=== PATIENT | female | born 1945 | race Caucasian/White ===

== ENCOUNTER → 2017-05-30 | Outpatient (CLI) | payer BC ==
[2017-05-30 16:08] LABS: ADD MAN DIFF? NO
[2017-05-30 16:14] LABS: BASOPHIL # 0.1 10^3/ul (0.0-0.1); BASOPHILS % 0.8 % (0.0-2.0); EOSINOPHILS # 0.1 10^3/ul (0.0-0.5); EOSINOPHILS % 0.8 % (0.0-7.0); HEMATOCRIT 35.7 % (37.0-47.0); HEMOGLOBIN 11.5 g/dl (12.0-16.0); LYMPHOCYTES # 2.9 10^3/ul (0.8-2.9); LYMPHOCYTES % 35.7 % (15.0-51.0); MEAN CORPUSCULAR HGB CONC 32.2 g/dl (32.0-37.0); MEAN CORPUSCULAR VOLUME 102.3 fl (82.0-101.0); MONOCYTE # 0.5 10^3/ul (0.3-0.9); MONOCYTES % 6.5 % (0.0-11.0); NEUTROPHIL # 4.5 10^3/ul (1.6-7.5); NEUTROPHILS % 56.1 % (39.0-77.0); PLATELET COUNT 256 10^3/UL (140-415); RED BLOOD COUNT 3.49 10^6/ul (4.20-5.40); RED CELL DISTRIBUTION WIDTH 14.1 % (11.5-14.5)
[2017-05-30 16:31] LABS: ALANINE AMINOTRANSFERASE 32 IU/L (13-69); ALBUMIN 4.5 g/dl (3.3-4.9); ALKALINE PHOSPHATASE 145 IU/L (42-121); ANION GAP 19 (8-16); ASPARTATE AMINO TRANSFERASE 27 IU/L (15-46); BILIRUBIN,INDIRECT 0.1 mg/dl (0-1.1); BILIRUBIN,TOTAL 0.1 mg/dl (0.2-1.3); BLOOD UREA NITROGEN 20 mg/dl (7-20); CALCIUM 9.9 mg/dl (8.4-10.2); CARBON DIOXIDE 25 mmol/L (21-31); CHLORIDE 102 mmol/L (97-110); CREATININE 0.77 mg/dl (0.44-1.00); GLUCOSE 380 mg/dl (70-220); POTASSIUM 5.2 mmol/L (3.5-5.1); SODIUM 141 mmol/L (135-144); TOTAL PROTEIN 8.1 g/dl (6.1-8.1)
[2017-05-30 16:32] LABS: ALBUMIN/GLOBULIN RATIO 1.25; C-REACTIVE PROTEIN 0.6 mg/dl (0.0-0.9)
[2017-05-30 17:21] LABS: ERYTHROCYTE SEDIMENTATION RATE 35 mm/Hr (0-30)
== END | disposition home or self-care (01) ==
LOC: LAB 15:50
DX: M06.9 Rheumatoid arthritis, unspecified (principal)
CPT/HCPCS: 80053; 85025; 85651; 86140

== ENCOUNTER → 2017-11-22 | Outpatient (CLI) | payer BC ==
[2017-11-22 16:17] LABS: ADD MAN DIFF? NO
[2017-11-22 16:19] LABS: BASOPHILS % 0.4 % (0.0-2.0); EOSINOPHILS % 0.3 % (0.0-7.0); HEMOGLOBIN 12.4 g/dl (12.0-16.0); LYMPHOCYTES # 2.8 10^3/ul (0.8-2.9); MEAN CORPUSCULAR HEMOGLOBIN 32.3 pg (29.0-33.0); MEAN CORPUSCULAR HGB CONC 31.8 g/dl (32.0-37.0); MEAN CORPUSCULAR VOLUME 101.6 fl (82.0-101.0); MEAN PLATELET VOLUME 9.9 fl (7.4-10.4); MONOCYTE # 0.6 10^3/ul (0.3-0.9); MONOCYTES % 7.1 % (0.0-11.0); NEUTROPHIL # 4.4 10^3/ul (1.6-7.5); NEUTROPHILS % 55.9 % (39.0-77.0); PLATELET COUNT 256 10^3/UL (140-415); RED BLOOD COUNT 3.84 10^6/ul (4.20-5.40); RED CELL DISTRIBUTION WIDTH 13.9 % (11.5-14.5)
[2017-11-22 16:19] LABS: WHITE BLOOD COUNT 7.9 10^3/ul (4.8-10.8)
[2017-11-22 16:54] LABS: IRON 43 ug/dl (35-150)
[2017-11-22 16:57] LABS: ALANINE AMINOTRANSFERASE 23 IU/L (13-69); ALBUMIN 4.1 g/dl (3.3-4.9); ALKALINE PHOSPHATASE 146 IU/L (42-121); ANION GAP 16 (8-16); ASPARTATE AMINO TRANSFERASE 26 IU/L (15-46); BILIRUBIN,INDIRECT 0.3 mg/dl (0-1.1); BILIRUBIN,TOTAL 0.3 mg/dl (0.2-1.3); BLOOD UREA NITROGEN 26 mg/dl (7-20); CALCIUM 9.9 mg/dl (8.4-10.2); CARBON DIOXIDE 26 mmol/L (21-31); CHLORIDE 101 mmol/L (97-110); CREATININE 0.74 mg/dl (0.44-1.00); GLUCOSE 270 mg/dl (70-220); POTASSIUM 4.1 mmol/L (3.5-5.1); SODIUM 139 mmol/L (135-144); TOTAL PROTEIN 8.2 g/dl (6.1-8.1)
[2017-11-22 17:05] LABS: % IRON SATURATION 13 % SAT (22-52); TOTAL IRON BINDING CAPACITY 329 ug/dl (241-421)
[2017-11-22 17:31] LABS: FERRITIN 95.9 ng/ml (11.1-264.0)
[2017-11-22 18:02] LABS: FOLATE > 20.0 ng/ml (2.8-20.0)
== END | disposition home or self-care (01) ==
LOC: LAB 15:50
DX: D64.9 Anemia, unspecified (principal)
CPT/HCPCS: 80053; 82607; 82728; 82746; 83036; 83540; 85025

== ENCOUNTER → 2018-02-22 | Outpatient (CLI) | payer BC ==
[2018-02-22 12:08] LABS: ADD MAN DIFF? NO
[2018-02-22 12:13] LABS: BASOPHILS % 0.6 % (0.0-2.0); EOSINOPHILS % 0.3 % (0.0-7.0); HEMATOCRIT 38.5 % (37.0-47.0); HEMOGLOBIN 12.1 g/dl (12.0-16.0); LYMPHOCYTES % 32.2 % (15.0-51.0); MEAN CORPUSCULAR HEMOGLOBIN 32.6 pg (29.0-33.0); MEAN CORPUSCULAR HGB CONC 31.4 g/dl (32.0-37.0); MEAN CORPUSCULAR VOLUME 103.8 fl (82.0-101.0); MONOCYTE # 0.7 10^3/ul (0.3-0.9); NEUTROPHIL # 3.5 10^3/ul (1.6-7.5); NEUTROPHILS % 55.4 % (39.0-77.0); PLATELET COUNT 260 10^3/UL (140-415); RED BLOOD COUNT 3.71 10^6/ul (4.20-5.40); RED CELL DISTRIBUTION WIDTH 15.4 % (11.5-14.5)
[2018-02-22 12:13] LABS: WHITE BLOOD COUNT 6.3 10^3/ul (4.8-10.8)
[2018-02-22 12:26] LABS: HEMOGLOBIN A1C 9.3 % (0-5.9)
[2018-02-22 12:32] LABS: ALANINE AMINOTRANSFERASE 23 IU/L (13-69); ALBUMIN 4.5 g/dl (3.3-4.9); ALBUMIN/GLOBULIN RATIO 1.21; ALKALINE PHOSPHATASE 134 IU/L (42-121); ANION GAP 12 (5-13); ASPARTATE AMINO TRANSFERASE 22 IU/L (15-46); BILIRUBIN,INDIRECT 0.2 mg/dl (0-1.1); BILIRUBIN,TOTAL 0.2 mg/dl (0.2-1.3); BLOOD UREA NITROGEN 17 mg/dl (7-20); CALCIUM 9.9 mg/dl (8.4-10.2); CARBON DIOXIDE 30 mmol/L (21-31); CHLORIDE 100 mmol/L (97-110); CHOL/HDL RATIO 2.7 RATIO; CHOLESTEROL 216 mg/dl (100-200); CREATININE 0.53 mg/dl (0.44-1.00); Estimated GFR > 60 mL/min (>60); GLUCOSE 321 mg/dl (70-220); HDL CHOLESTEROL 78 mg/dl (33-92); LDL CHOLESTEROL,CALCULATED 118 mg/dl; POTASSIUM 4.8 mmol/L (3.5-5.1); SODIUM 142 mmol/L (135-144); TOTAL PROTEIN 8.2 g/dl (6.1-8.1); TRIGLYCERIDES 101 mg/dl (0-149)
== END | disposition home or self-care (01) ==
LOC: LAB 11:47
DX: E11.9 Type 2 diabetes mellitus without complications (principal); I10 Essential (primary) hypertension; E78.5 Hyperlipidemia, unspecified
CPT/HCPCS: 80053; 80061; 83036; 84443; 85025

== ENCOUNTER → 2018-03-08 | Outpatient (CLI) | payer BC | END | disposition home or self-care (01) | LOC: EKG 13:31 | DX: I10 Essential (primary) hypertension (principal); E11.8 Type 2 diabetes mellitus with unspecified complications ==

== ENCOUNTER 2018-03-28 07:35 | Inpatient (IN) | payer BC ==
[2018-03-22 11:34] LABS: ADD MAN DIFF? NO
[2018-03-22 11:42] LABS: WHITE BLOOD COUNT 8.2 10^3/ul (4.8-10.8)
[2018-03-22 11:42] LABS: BASOPHIL # 0.1 10^3/ul (0.0-0.1); BASOPHILS % 0.6 % (0.0-2.0); EOSINOPHILS % 0.5 % (0.0-7.0); HEMATOCRIT 36.5 % (37.0-47.0); HEMOGLOBIN 11.7 g/dl (12.0-16.0); LYMPHOCYTES # 2.4 10^3/ul (0.8-2.9); LYMPHOCYTES % 29.4 % (15.0-51.0); MEAN CORPUSCULAR HEMOGLOBIN 33.6 pg (29.0-33.0); MEAN CORPUSCULAR HGB CONC 32.1 g/dl (32.0-37.0); MEAN CORPUSCULAR VOLUME 104.9 fl (82.0-101.0); MEAN PLATELET VOLUME 10.1 fl (7.4-10.4); MONOCYTE # 0.5 10^3/ul (0.3-0.9); MONOCYTES % 6.4 % (0.0-11.0); NEUTROPHIL # 5.1 10^3/ul (1.6-7.5); NEUTROPHILS % 62.9 % (39.0-77.0); PLATELET COUNT 239 10^3/UL (140-415); RED BLOOD COUNT 3.48 10^6/ul (4.20-5.40); RED CELL DISTRIBUTION WIDTH 14.4 % (11.5-14.5)
[2018-03-22 11:53] LABS: ALANINE AMINOTRANSFERASE 16 IU/L (13-69); ALBUMIN 4.5 g/dl (3.3-4.9); ALBUMIN/GLOBULIN RATIO 1.21; ALKALINE PHOSPHATASE 144 IU/L (42-121); ANION GAP 10 (5-13); ASPARTATE AMINO TRANSFERASE 23 IU/L (15-46); BILIRUBIN,INDIRECT 0.1 mg/dl (0-1.1); BILIRUBIN,TOTAL 0.1 mg/dl (0.2-1.3); BLOOD UREA NITROGEN 20 mg/dl (7-20); CALCIUM 9.9 mg/dl (8.4-10.2); CARBON DIOXIDE 28 mmol/L (21-31); CHLORIDE 100 mmol/L (97-110); CREATININE 0.59 mg/dl (0.44-1.00); Estimated GFR > 60 mL/min (>60); GLUCOSE 332 mg/dl (70-220); POTASSIUM 4.4 mmol/L (3.5-5.1); SODIUM 138 mmol/L (135-144); TOTAL PROTEIN 8.2 g/dl (6.1-8.1)
[2018-03-22 11:55] LABS: INR 0.88; PARTIAL THROMBOPLASTIN TIME 25.7 Sec (23.0-35.0); PT RATIO 0.9
[2018-03-22 12:04] LABS: ADD UMIC YES; UR ASCORBIC ACID NEGATIVE (NEGATIVE); UR BILIRUBIN (Dip) NEGATIVE (NEGATIVE); UR BLOOD (Dip) NEGATIVE (NEGATIVE); UR CLARITY CLEAR (CLEAR); UR COLOR STRAW (YELLOW); UR GLUCOSE (Dip) 3+ mg/dL (NEGATIVE); UR KETONES (Dip) NEGATIVE (NEGATIVE); UR LEUKOCYTE ESTERASE (Dip) 1+ Leu/ul (NEGATIVE); UR NITRITE (Dip) NEGATIVE (NEGATIVE); UR RBC 1 /HPF (0-5); UR SPECIFIC GRAVITY (Dip) 1.009 (1.003-1.030); UR TOTAL PROTEIN (Dip) NEGATIVE (NEGATIVE); UR UROBILINOGEN (Dip) NEGATIVE (NEGATIVE); UR WBC 3 /HPF (0-5)
[~2018-03-28 07:35] MED LIST: SEVOFLURANE 15 MIN
[2018-03-28] MEDS ORDERED: TRANEXAMIC ACID 1,000 MG in DEXTROSE 5% 100 ML IVPB (08:30)
[2018-03-28] MEDS ORDERED: CEFAZOLIN 2 GM/50 ML (PMX) 50 ML IVPB (08:30)
[2018-03-28] MEDS: LACTATED RINGER'S 1,000 ML IV* (09:20)
[2018-03-28] MEDS: GABAPENTIN 300 MG CAP PO ×2 (09:20→20:33)
[2018-03-28] MEDS: DEXAMETHASONE 1 MG TAB PO (09:20)
[2018-03-28] MEDS ORDERED: BUPIVACAINE 0.5% (SDV) 30 ML, morphine SULFATE (PF) 8 MG, EPINEPHrine 0.3 MG, KETOROLAC... IRR (10:00)
[2018-03-28] MEDS ORDERED: MIDAZOLAM 1 MG/ML 2 ML INJ (10:40)
[2018-03-28] MEDS ORDERED: FENTAnyl 50 MCG/ML VIAL (10:41)
[2018-03-28] MEDS ORDERED: ROPIVACAINE 0.5 % 30 ML VIAL (10:48)
[2018-03-28] MEDS ORDERED: hydrALAzine 20 MG INJ (10:51)
[2018-03-28] MEDS ORDERED: THROMBIN (BOVINE) 5,000 UNIT VIAL TP (12:22)
[2018-03-28] MEDS: POLYMYXIN/BACITRACIN 1L IRRIG (12:22)
[2018-03-28] MEDS ORDERED: CA CHLORIDE (GM) 10% 10 ML INJ (12:22)
[2018-03-28] MEDS ORDERED: CEFAZOLIN 1 GM INJ (12:54)
[2018-03-28] MEDS ORDERED: LIDOCAINE 2% (SDV) 5 ML INJ (12:55)
[2018-03-28] MEDS ORDERED: ONDANSETRON 4 MG INJ (12:55)
[2018-03-28] MEDS ORDERED: METOCLOPRAMIDE 10 MG INJ (12:55)
[2018-03-28] MEDS ORDERED: ETOMIDATE 20 MG INJ (12:55)
[2018-03-28] MEDS ORDERED: ONDANSETRON 4 MG INJ IV ×2 (13:30)
[2018-03-28] MEDS ORDERED: METOCLOPRAMIDE 10 MG INJ IV (13:30)
[2018-03-28] MEDS ORDERED: MEPERIDINE 25 MG INJ IV (13:30)
[2018-03-28] MEDS ORDERED: NALOXONE (0.4 MG/ML) INJ IV (13:30)
[2018-03-28] MEDS ORDERED: DIPHENHYDRAMINE 50 MG INJ IV ×2 (13:30)
[2018-03-28] MEDS ORDERED: LABETALOL HCL 20MG INJ IV (13:30)
[2018-03-28] MEDS ORDERED: hydrALAzine 20 MG INJ IV (13:30)
[2018-03-28] MEDS ORDERED: ZOLPIDEM 5 MG TAB PO (13:30)
[2018-03-28] MEDS ORDERED: NACL 0.9% 3 ML SYG IV (13:30)
[2018-03-28] MEDS ORDERED: oxyCODONE 5 MG TAB PO ×2 (13:30)
[2018-03-28] MEDS ORDERED: LOPERAMIDE 2 MG CAP PO (13:30)
[2018-03-28] MEDS ORDERED: HYDROmorphONE 1 MG/ML SYG IV (13:30)
[2018-03-28] MEDS ORDERED: DULAGLUTIDE 0.75 MG SQ (13:30)
[2018-03-28] MEDS ORDERED: FENTAnyl 50 MCG/ML VIAL IV (13:30)
[2018-03-28] MEDS ORDERED: MAGNESIUM HYDROXIDE 30ML CUP PO (13:30)
[2018-03-28] MEDS ORDERED: HYDROmorphONE 1 MG/5 ML IV SYRINGE IV (13:51)
[2018-03-28] MEDS: HYDROmorphONE 1 MG/5 ML IV SYRINGE IV ×3 (14:08→14:21)
[2018-03-28] MEDS: TRANEXAMIC ACID 1,000 MG in SOD CHLORIDE 0.9% 100 ML IVPB (14:21)
[2018-03-28] MEDS: KETOROLAC 15 MG INJ IV (14:42)
[2018-03-28] MEDS: ONDANSETRON 4 MG INJ IV ×2 (16:04→23:53)
[2018-03-28] MEDS: CEFAZOLIN 1 GM/50 ML (PMX) 50 ML IVPB ×2 (16:04→22:05)
[2018-03-28] MEDS: ACETAMINOPHEN 500 MG TAB PO ×2 (18:00→23:54)
[2018-03-28] MEDS: DEXAMETHASONE 2 MG TAB PO ×2 (18:09→23:54)
[2018-03-28] MEDS: metFORMIN 500 MG TAB PO (18:09)
[2018-03-28] MEDS ORDERED: GLUCOSE GEL 15 GRAM TUBE PO ×2 (19:00)
[2018-03-28] MEDS ORDERED: GLUCOSE GEL 15 GRAM TUBE BUCCAL (19:00)
[2018-03-28] MEDS ORDERED: DEXTROSE 50% 50 ML SYRINGE IV ×2 (19:00)
[2018-03-28] MEDS ORDERED: GLUCAGON 1 MG INJ IM (19:00)
[2018-03-28] MEDS: SENNA/DOCUSATE NA (8.6MG/50MG) TAB PO (20:33)
[2018-03-28] MEDS: INSULIN ASPART [NOVOLOG] 3 ML PEN SC (21:34)
[2018-03-28] MEDS: oxyCODONE 5 MG TAB PO (21:38)
[2018-03-29] MEDS: ACCU-CHEK XX (01:57)
[2018-03-29] MEDS: KETOROLAC 15 MG INJ IV (03:40)
[2018-03-29 05:24] LABS: ADD MAN DIFF? NO
[2018-03-29] MEDS: ACETAMINOPHEN 500 MG TAB PO (05:28)
[2018-03-29] MEDS: CEFAZOLIN 1 GM/50 ML (PMX) 50 ML IVPB (05:28)
[2018-03-29] MEDS: DEXAMETHASONE 2 MG TAB PO (05:28)
[2018-03-29 05:39] LABS: WHITE BLOOD COUNT 11.4 10^3/ul (4.8-10.8)
[2018-03-29 05:39] LABS: BASOPHILS % 0.2 % (0.0-2.0); HEMATOCRIT 31.4 % (37.0-47.0); LYMPHOCYTES # 1.3 10^3/ul (0.8-2.9); LYMPHOCYTES % 11.3 % (15.0-51.0); MEAN CORPUSCULAR HGB CONC 31.8 g/dl (32.0-37.0); MEAN CORPUSCULAR VOLUME 103.6 fl (82.0-101.0); MEAN PLATELET VOLUME 10.3 fl (7.4-10.4); MONOCYTE # 0.7 10^3/ul (0.3-0.9); MONOCYTES % 5.7 % (0.0-11.0); NEUTROPHIL # 9.4 10^3/ul (1.6-7.5); NEUTROPHILS % 82.4 % (39.0-77.0); PLATELET COUNT 194 10^3/UL (140-415); RED BLOOD COUNT 3.03 10^6/ul (4.20-5.40); RED CELL DISTRIBUTION WIDTH 14.1 % (11.5-14.5)
[2018-03-29 05:56] LABS: ALANINE AMINOTRANSFERASE 26 IU/L (13-69); ALBUMIN 3.3 g/dl (3.3-4.9); ALBUMIN/GLOBULIN RATIO 1.22; ALKALINE PHOSPHATASE 86 IU/L (42-121); ANION GAP 8 (5-13); ASPARTATE AMINO TRANSFERASE 34 IU/L (15-46); BILIRUBIN,INDIRECT 0.1 mg/dl (0-1.1); BILIRUBIN,TOTAL 0.1 mg/dl (0.2-1.3); BLOOD UREA NITROGEN 13 mg/dl (7-20); CALCIUM 9.1 mg/dl (8.4-10.2); CARBON DIOXIDE 27 mmol/L (21-31); CHLORIDE 102 mmol/L (97-110); CREATININE 0.51 mg/dl (0.44-1.00); Estimated GFR > 60 mL/min (>60); GLUCOSE 205 mg/dl (70-220); POTASSIUM 5.1 mmol/L (3.5-5.1); SODIUM 137 mmol/L (135-144)
[2018-03-29] MEDS: FOLIC ACID 1 MG TAB PO (08:39)
[2018-03-29] MEDS: AMLODIPINE 5 MG TAB PO (08:39)
[2018-03-29] MEDS: SENNA/DOCUSATE NA (8.6MG/50MG) TAB PO (08:39)
[2018-03-29] MEDS: metFORMIN 500 MG TAB PO (08:41)
[2018-03-29] MEDS: INSULIN ASPART [NOVOLOG] 3 ML PEN SC (08:45)
[2018-03-29] MEDS ORDERED: INSULIN DEGLUDEC 14 UNIT SQ (09:00)
[2018-03-29] MEDS ORDERED: [UNRECOGNIZED DRUG - OTHER] XX (09:30)
[2018-03-29] MEDS ORDERED: [UNRECOGNIZED DRUG - REMARK] XX (09:30)
== END 2018-03-29 12:38 | disposition home or self-care (01) | DRG 483 ==
LOC: SDS 07:35 → REC 07:36 → MS1 15:26
PROC: 0RRJ00Z Replacement of Right Shoulder Joint with Reverse Ball and Socket Synthetic Substitute, Open Approach (ICD-10-PCS; principal; 2018-03-28 11:30)
DX: M19.011 Primary osteoarthritis, right shoulder (principal); M75.101 Unspecified rotator cuff tear or rupture of right shoulder, not specified as traumatic; E11.9 Type 2 diabetes mellitus without complications; I10 Essential (primary) hypertension; E78.5 Hyperlipidemia, unspecified; Z96.612 Presence of left artificial shoulder joint; Z96.653 Presence of artificial knee joint, bilateral; Z79.4 Long term (current) use of insulin
CPT/HCPCS: 71045; 73030-RT; 80053; 81001; 82962; 85025; 85610; 85730; 86999; 88304; 88311; 97166

== ENCOUNTER → 2018-09-23 | Outpatient (CLI) | payer BC ==
[2018-09-23 16:31] LABS: HEMOGLOBIN A1C 7.7 % (0-5.9)
[2018-09-23 17:03] LABS: IONIZED CALCIUM 1.2 mmol/L (1.1-1.4)
== END | disposition home or self-care (01) ==
LOC: LAB 15:58
DX: E83.59 Other disorders of calcium metabolism (principal)
CPT/HCPCS: 82330; 83036

== ENCOUNTER → 2018-10-31 | Outpatient (CLI) | payer BC ==
[2018-10-31 16:06] LABS: ADD MAN DIFF? NO
[2018-10-31 16:07] LABS: BASOPHILS % 0.5 % (0.0-2.0); EOSINOPHILS # 0.1 10^3/ul (0.0-0.5); EOSINOPHILS % 0.7 % (0.0-7.0); HEMATOCRIT 33.1 % (37.0-47.0); HEMOGLOBIN 10.4 g/dl (12.0-16.0); LYMPHOCYTES # 3.1 10^3/ul (0.8-2.9); LYMPHOCYTES % 42.4 % (15.0-51.0); MEAN CORPUSCULAR HEMOGLOBIN 32.7 pg (29.0-33.0); MEAN CORPUSCULAR HGB CONC 31.4 g/dl (32.0-37.0); MEAN CORPUSCULAR VOLUME 104.1 fl (82.0-101.0); MEAN PLATELET VOLUME 9.2 fl (7.4-10.4); MONOCYTE # 0.4 10^3/ul (0.3-0.9); MONOCYTES % 4.7 % (0.0-11.0); NEUTROPHIL # 3.8 10^3/ul (1.6-7.5); NEUTROPHILS % 50.8 % (39.0-77.0); PLATELET COUNT 229 10^3/UL (140-415); RED BLOOD COUNT 3.18 10^6/ul (4.20-5.40); RED CELL DISTRIBUTION WIDTH 14.6 % (11.5-14.5)
[2018-10-31 16:07] LABS: WHITE BLOOD COUNT 7.4 10^3/ul (4.8-10.8)
[2018-10-31 16:24] LABS: ALANINE AMINOTRANSFERASE 26 IU/L (13-69); ALBUMIN 4.2 g/dl (3.3-4.9); ALBUMIN/GLOBULIN RATIO 1.13; ALKALINE PHOSPHATASE 113 IU/L (42-121); ANION GAP 8 (5-13); ASPARTATE AMINO TRANSFERASE 32 IU/L (15-46); BILIRUBIN,INDIRECT 0.1 mg/dl (0-1.1); BILIRUBIN,TOTAL 0.1 mg/dl (0.2-1.3); BLOOD UREA NITROGEN 26 mg/dl (7-20); CALCIUM 9.2 mg/dl (8.4-10.2); CARBON DIOXIDE 28 mmol/L (21-31); CHLORIDE 103 mmol/L (97-110); CREATININE 0.84 mg/dl (0.44-1.00); GLUCOSE 86 mg/dl (70-220); SODIUM 139 mmol/L (135-144); TOTAL PROTEIN 7.9 g/dl (6.1-8.1)
== END | disposition home or self-care (01) ==
LOC: LAB 15:41
DX: M06.9 Rheumatoid arthritis, unspecified (principal)
CPT/HCPCS: 80053; 82306; 83970; 85025